=== PATIENT | male | born 1955 | race Caucasian/White ===

== ENCOUNTER 2023-08-12 15:26 | Outpatient (REF) | payer MEDICARE, BC, SELFPAY ==
[2023-08-12 17:07] LABS: COMMENT (LAB VIEW ONLY) 107.67 mg/dL; Microalb ug/mg Crea 9.1 ug/mg Cr
== END 2023-08-12 15:27 | disposition home or self-care (01) ==
LOC: LBN 15:26
PROVIDERS: PCP Family Medicine; Visit Provider Family Medicine
DX: E11.9 Type 2 diabetes mellitus without complications (principal)
CPT/HCPCS: 82043; 82570

== ENCOUNTER → 2023-11-27 13:28 | Outpatient (BNVA) | payer MEDICARE, BC, SELFPAY | PROVIDERS: PCP Family Medicine; Referring Provider Family Medicine; Visit Provider Student in an Organized Health Care Education/Training Program | DX: M17.11 Unilateral primary osteoarthritis, right knee (principal) | CPT/HCPCS: 99203 ==

== ENCOUNTER 2024-10-26 18:25 | Outpatient (REF) | payer MEDICARE, BC, SELFPAY ==
[2024-10-26 17:39] LABS: COMMENT (LAB VIEW ONLY) 113.03 mg/dL
== END 2024-10-26 18:26 | disposition home or self-care (01) ==
LOC: LBN 18:25
PROVIDERS: PCP Family Medicine; Visit Provider Family Medicine
DX: E11.9 Type 2 diabetes mellitus without complications (principal); L98.9 Disorder of the skin and subcutaneous tissue, unspecified; L57.0 Actinic keratosis; I10 Essential (primary) hypertension
CPT/HCPCS: 82043; 82570